=== PATIENT | female | born 1980 | race Two or more races ===

== ENCOUNTER 2017-11-27 06:40 | Inpatient (IN) | payer OTHER ==
[~2017-11-27] VITALS: Ht 154.9 cm; Wt 56.2 kg
[~2017-11-27 06:40] MED LIST: NIFE60TA3 PO; PRENATABS FA T1 EACH PO
== END 2017-12-27 14:33 | disposition home or self-care (01) | DRG 782 ==
LOC: CIR.AMB 06:40 → LDR 15:00 → CIR.AMB 11-28 06:12 → OB/GYN 12-04 10:32
PROVIDERS: Obstetrics & Gynecology
PROC: 4A1HXCZ Monitoring of Products of Conception, Cardiac Rate, External Approach (ICD-10-PCS; 2017-11-27)
PROC: 0UVC7ZZ Restriction of Cervix, Via Natural or Artificial Opening (ICD-10-PCS; principal; 2017-11-27 09:00)
PROC: BY4CZZZ Ultrasonography of Second Trimester, Single Fetus (ICD-10-PCS; 2017-11-29)
PROC: BU4CZZZ Ultrasonography of Uterus and Ovaries (ICD-10-PCS; 2017-11-29)
PROC: BY4CZZZ Ultrasonography of Second Trimester, Single Fetus (ICD-10-PCS; 2017-12-09)
PROC: BU4CZZZ Ultrasonography of Uterus and Ovaries (ICD-10-PCS; 2017-12-09)
PROC: BY4CZZZ Ultrasonography of Second Trimester, Single Fetus (ICD-10-PCS; 2017-12-17)
PROC: BU4CZZZ Ultrasonography of Uterus and Ovaries (ICD-10-PCS; 2017-12-17)
PROC: BY4CZZZ Ultrasonography of Second Trimester, Single Fetus (ICD-10-PCS; 2017-12-25)
PROC: BU4CZZZ Ultrasonography of Uterus and Ovaries (ICD-10-PCS; 2017-12-25)
DX: O34.32 Maternal care for cervical incompetence, second trimester (principal); Z3A.23 23 weeks gestation of pregnancy

== ENCOUNTER 2018-01-07 18:41 | Outpatient (CLI) | payer OTHER ==
[2018-01-08] MEDS ORDERED: ADULT ASPIRIN81 MG PO (21:24)
[2018-01-08] MEDS ORDERED: MIRALAX17 GM PO (21:24)
[2018-01-08] MEDS ORDERED: PEPCID20 MG PO (21:26)
== END 2018-01-07 21:31 | disposition home or self-care (01) ==
LOC: NST 18:41
DX: Z34.83 Encounter for supervision of other normal pregnancy, third trimester (principal)